=== PATIENT | male | born 1990 | race Caucasian/White ===

== ENCOUNTER 2016-12-21 22:26 | Emergency (ER) | payer SELFPAY | END 2016-12-21 22:36 | disposition home or self-care (01) | LOC: ER 22:26 | PROC: 0H9JXZZ Drainage of Left Upper Leg Skin, External Approach (ICD-10-PCS; principal; 2016-12-21) | DX: L02.416 Cutaneous abscess of left lower limb (principal); F17.200 Nicotine dependence, unspecified, uncomplicated | CPT/HCPCS: 99283; A9270-GY ==